=== PATIENT | female | born 1980 | race Caucasian/White ===

== ENCOUNTER 2020-05-24 04:39 | Inpatient (IN) | payer BC ==
[2020-05-24] MEDS ORDERED: Nalbuphine 10 MG/ML Syringe IVPUSH PRN (05:33)
[2020-05-24] MEDS ORDERED: Ampicillin 2 GM in Sodium Chloride 0.9% 100 ML IV ONE (05:33)
[2020-05-24] MEDS ORDERED: Sodium Chloride 0.9% 10 ML Syringe FLUSH PRN (05:33)
[2020-05-24] MEDS ORDERED: Ondansetron 4 MG/2 ML SDV IVPUSH PRN (05:33)
[2020-05-24] MEDS ORDERED: Oxytocin/Lactated Ringers 20 UNIT/1,000 ML BAG IV SCH (05:45)
[2020-05-24] MEDS: Lactated Ringers 1,000 ML IV SCH ×4 (06:15→22:14)
[2020-05-24] MEDS: Oxytocin/Lactated Ringers 10 UNIT/1,000 ML BAG IV SCH (06:20)
[2020-05-24] MEDS: Ampicillin 1 GM in Sodium Chloride 0.9% 100 ML IV SCH ×4 (10:02→21:23)
--- NOTE | 2020-05-24 11:00 | PCM.LDHP ---
<Marita Vilchis - Last Filed: 05/24/20 10:36> L&D History of Present Illness - General Date of Service: 05/24/20 Admit Problem/Dx: Patient Status Order with Admit Dx/Problem 05/24/20 04:57 Patient Status [ADT] Routine 05/24/20 05:33 Patient Status [ADT] Routine Admission Diagnosis/Problem Admission Diagnosis/Problem 05/24/20 10:36 Carolyn Vasquez is a 39 year old white female who presents to labor and delivery with rupture of membranes. She is 40 weeks and 1 day gestational age with an SAMMI of 05/23/2020. Source of Information: Patient History Limitations: Reports: No Limitations - History of Present Illness Introduction:: Carolyn Vasquez is a 39 year old white female who presents to labor and delivery with rupture of membranes. She is 40 weeks and 1 day gestational age with an SAMMI of 05/23/2020. Patient states that around 4:00 am this morning she felt a gush of fluids and came in to be checked. She is currently not experiencing any pain or contractions. She endorses that she has had a few contractions that radiated into her pelvic region. She is otherwise not bothered by labor. Carolyn did test positive for COVID-19. She states she did experience some sciatic pain early in . She had a lidocaine patch she applied that took the pain and irritation away. She recently has been experiencing some constipation. Carolyn states she modified her diet to control the constipation. She denies fever, cough, chills, sweats, sore throat, epistaxis, tinnitus, shortness of breath, chest pain, palpitations, dysuria, hematuria, anemia, paresthesias, anxiety or depression. [employer] OPERATOR history: Carolyn is a 39 year old . SAMMI of 05/23/2020 as determined by ultrasound on 11/05/2019. LMP was 08/25/2019. Patient had menarche at age 15. Early on her cycles were irregular but in the last 8-10 years have been regular with cycles being every 28 days. She would bleed for approximately 3-4 days. Menses were heavy. Patient was not on control at time of conception. She has no history of abnormal pap smears. She denies any STIs. course has been relatively unremarkable. She was seen early in at approximately 13 weeks gestation. She had regular visits. Weight gain was from 235 pounds to 278 pounds. Vital signs were stable throughout the course and her fundal height growth was appropriate. Patient had her TDAP on 03/01/2020. She plans to breast feed. Group B strep was positive. She desires epidural in labor. She is rubella immune. Blood type shows patient is O positive with a negative antibody screen. Hemoglobin was 12.8 g/dL and platelets were 258,000. RPR was nonreactive. Urine culture showed mixed frankie suggestive of contamination. HIV and Hepatitis B surface antigen were both negative. TSH on 10/29/2019 was 5.999 mlU/L. Second trimester labs revealed a hemoglobin of 10.5 g/dL and platelets of 288,000. Diabetic screening test was normal at 107. RPR on 03/01/2020 was nonreactive. Group B strep screen was positive. Assessment/Plan Administer 2 g IV Ampicillin with maintenance dose of 2 grams every hour until delivery for Group B strep. Administer Pitocin. Group B strep screen positive. Patient desires epidural Patient plans to breast feed Rubella titer shows immunity Plan: Anticipate normal spontaneous vaginal delivery unless otherwise indicated. Pitocin augmentation as needed Epidural as needed Routine labor care as needed COVID-19 precautions. Timing/Duration: Reports: gradual onset, intermittent Location, : Reports: Pelvic Quality: Reports: Pressure Pain Score: 1 - Related Data Allergies/Adverse Reactions: Allergies Allergy/AdvReac Type Severity Reaction Status Date / Time No Known Allergies Allergy Verified 05/24/20 04:59 Home Medications: Home Meds Ascorbic Acid [Vitamin C] 1,000 mg PO TID 05/24/20 [History] Aspirin [Adult Low Dose Aspirin EC] 81 mg PO DAILY 05/24/20 [History] Levothyroxine 25 mcg PO ACBREAKFAST 05/24/20 [History] Pnv No.95/Ferrous Fum/Folic AC [ Caplet] 2 each PO DAILY 05/24/20 [History] valACYclovir [Valtrex] 1,000 mg PO DAILY PRN MDD PRN symptom onset 05/24/20 [History] Past Medical History HEENT History: Reports: Allergic Rhinitis (Takes Zyrtec) Cardiovascular History: Denies: Hypertension Respiratory History: Denies: Asthma, Bronchitis, Recurrent Gastrointestinal History: Reports: GERD Genitourinary History: Reports: STD, Other (See Below) Other Genitourinary History: ORAL HSV [employer] OPERATOR History: Reports: Musculoskeletal History: Reports: None Neurological History: Reports: None Psychiatric History: Reports: None Endocrine/Metabolic History: Reports: Hyperthyroidism, Obesity/BMI 30+ Hematologic History: Reports: Anemia Immunologic History: Reports: None Oncologic (Cancer) History: Reports: None Dermatologic History: Reports: Other (See Below) - Infectious Disease History Infectious Disease History: Reports: None - Past Surgical History Head Surgeries/Procedures: Reports: None HEENT Surgical History: Reports: Oral Surgery, Other (See Below) Other HEENT Surgeries/Procedures: Wears glasses, wisdom teeth pulled Cardiovascular Surgical History: Reports: None Respiratory Surgical History: Reports: None GI Surgical History: Reports: None Female Surgical History: Reports: None Endocrine Surgical History: Reports: None Neurological Surgical History: Reports: None Musculoskeletal Surgical History: Reports: None Oncologic Surgical History: Reports: None Dermatological Surgical History: Reports: Skin Biopsy Social & Family History - Family History Family Medical History: Noncontributory Cardiac: Reports: Afib (Father), Hypertension (Father, Mother, Sister) - Tobacco Use Smoking Status *Q: Never Smoker Second Hand Smoke Exposure: No - Tobacco Core Measures Tobacco Use/Smoking Within Last 30 Days: No - Caffeine Use Caffeine Use: Reports: None, Coffee (1-2 cups per morning), Soda (Diet coke, Sprite) - Alcohol Use Alcohol Use History: No - Recreational Drug Use Recreational Drug Use: No - Living Situation & Occupation Living situation: Reports: Single, with Significant Other Occupation: Employed Social History Comment: Planning on moving in with significant other. Feels safe at home. Maintained healthy diet and exercise throughout course. States she traveled to [place] with mom and sisters right before COVID-19 hit the [place]. She was there for 5 days and returned early November. H&P Review of Systems - Review of Systems: Review Of Systems: See Below General: Denies: Fever, Chills, Weakness, Fatigue, Night Sweats HEENT: Reports: Sinus Congestion (Seasonal allergies). Denies: Headaches, Hearing Changes, Post Nasal Drip, Sore Throat Pulmonary: Denies: Shortness of Breath, Pleuritic Chest Pain, Cough, Sputum, Hemoptysis Cardiovascular: Reports: Edema. Denies: Chest Pain, Palpitations, Blood P ressure Problem Gastrointestinal: Reports: Constipation (Last few weeks of ; dietary modifications are helping. ). Denies: Black Stool, Bloody Stool, Diarrhea, Nausea, Vomiting Genitourinary: Denies: Dysuria, Frequency, Burning, Pain, Urgency Musculoskeletal: Denies: Arm Pain, Leg Pain, Joint Pain, Muscle Pain Skin: Denies: Cyanosis, Pruritis, Rash, Lesions, Lumps, Urticaria Psychiatric: Denies: Confusion, Depression, Anxiety, Agitation, Suicidal Ideation, Homicidal Ideation Neurological: Denies: Confusion, Dizziness, Headache, Numbness, Paresthesia, Tingling, Tremors Hematologic/Lymphatic: Denies: Anemia, Easy Bleeding Immunologic: Reports: Seasonal Allergy L&D Exam - Exam Exam: See Below - Vital Signs Vital Signs: Last Vital Signs Temp 98.0 F 05/24/20 04:57 Pulse 75 05/24/20 04:57 Resp 16 05/24/20 04:57 BP 125/87 05/24/20 04:57 Pulse Ox 95 05/24/20 04:57 Weight: 279 lb - OB Specific Contraction Intensity: Mild Movement: Active Heart Tones: Present - Exam General: Alert, Oriented HEENT: Hearing Intact Neck: Supple, Trachea Midline Lungs: Clear to Auscultation, Normal Respiratory Effort Cardiovascular: Regular Rate, Regular Rhythm, Normal S1, Normal S2 GI/Abdominal Exam: Soft, Non-Tender, Other (Gravid.) Extremities: Normal Inspection, Normal Range of Motion, Pedal Edema Skin: Warm, Dry, Intact Psychiatric: Alert, Normal Affect, Normal Mood - Patient Data Lab Results Last 24 hrs: Laboratory Results - last 24 hr 05/24/20 05/24/20 05/24/20 Range/Units 05:10 05:50 05:50 WBC 6.51 (3.98-10.04) K/mm3 RBC 4.27 (3.98-5.22) M/mm3 Hgb 11.7 (11.2-15.7) gm/dl Hct 36.0 (34.1-44.9) % MCV 84.3 (79.4-94.8) fl MCH 27.4 (25.6-32.2) pg MCHC 32.5 (32.2-35.5) g/dl RDW Std Deviation 45.5 (36.4-46.3) fL Plt Count 264 (182-369) K/mm3 MPV 11.9 (9.4-12.3) fl Neut % (Auto) 52.8 (34.0-71.1) % Lymph % (Auto) 29.8 (19.3-51.7) % Ward % (Auto) 11.5 (4.7-12.5) % Eos % (Auto) 5.2 (0.7-5.8) Baso % (Auto) 0.5 (0.1-1.2) % Neut # (Auto) 3.44 (1.56-6.13) K/mm3 Lymph # (Auto) 1.94 (1.18-3.74) K/mm3 Ward # (Auto) 0.75 H (0.24-0.36) K/mm3 Eos # (Auto) 0.34 (0.04-0.36) K/mm3 Baso # (Auto) 0.03 (0.01-0.08) K/mm3 Membrane Rupture Positive H COVID-19 (DANIELE) (NEGATIVE) Blood Type O POSITIVE Gel Antibody Screen Negative 05/24/20 Range/Units 06:20 WBC (3.98-10.04) K/mm3 RBC (3.98-5.22) M/mm3 Hgb (11.2-15.7) gm/dl Hct (34.1-44.9) % MCV (79.4-94.8) fl MCH (25.6-32.2) pg MCHC (32.2-35.5) g/dl RDW Std Deviation (36.4-46.3) fL Plt Count (182-369) K/mm3 MPV (9.4-12.3) fl Neut % (Auto) (34.0-71.1) % Lymph % (Auto) (19.3-51.7) % Ward % (Auto) (4.7-12.5) % Eos % (Auto) (0.7-5.8) Baso % (Auto) (0.1-1.2) % Neut # (Auto) (1.56-6.13) K/mm3 Lymph # (Auto) (1.18-3.74) K/mm3 Ward # (Auto) (0.24-0.36) K/mm3 Eos # (Auto) (0.04-0.36) K/mm3 Baso # (Auto) (0.01-0.08) K/mm3 Membrane Rupture COVID-19 (DANIELE) Positive H (NEGATIVE) Blood Type Gel Antibody Screen Result Diagrams: 05/24/20 05:50 Problem List Initiated/Reviewed/Updated: Yes Orders Last 24hrs: Active Orders 24 hr Category Date Time Status Patient Status [ADT] Routine ADT 05/24/20 05:33 Active Activity as Tolerated [RC] PFP Care 05/24/20 05:33 Active Communication Order [RC] ASDIRECTED Care 05/24/20 05:33 Active Heart Tones [RC] ASDIRECTED Care 05/24/20 05:34 Active Non Stress Test [RC] PER UNIT ROUTINE Care 05/24/20 04:57 Active Notify Provider [RC] PFP Care 05/24/20 05:33 Active Notify Provider [RC] PRN Care 05/24/20 05:33 Active Peripheral IV Care [RC] . DIRECTED Care 05/24/20 05:34 Active Vital Signs [RC] PER UNIT ROUTINE Care 05/24/20 04:57 Active Regular Diet [DIET] Diet 05/24/20 Breakfast Active CORONAVIRUS COVID-19 PCR PHL Stat Lab 05/24/20 06:50 Received RAPID PLASMA REAGIN,RPR [CHEM] Routine Lab 05/24/20 05:50 Received Ampicillin 1 gm Med 05/24/20 09:30 Active Sodium Chloride 0.9% [Normal Saline] 100 ml IV Q4H Lactated Ringers [Ringers, Lactated] 1,000 ml Med 05/24/20 05:45 Active IV ASDIRECTED Nalbuphine [Nubain] Med 05/24/20 05:33 Active 10 mg IVPUSH Q2H PRN Ondansetron [Zofran] Med 05/24/20 05:33 Active 4 mg IVPUSH Q4H PRN Oxytocin/Lactated Ringers [Pitocin in LR 10 Units/1,000 Med 05/24/20 05:45 Active ML] 10 unit in 1,000 ml IV TITRATE Oxytocin/Lactated Ringers [Pitocin in LR 20 Units/1,000 Med 05/24/20 05:45 Active ML] 20 unit in 1,000 ml IV .CONTINUOUS Sodium Chloride 0.9% [Saline Flush] Med 05/24/20 05:33 Active 10 ml FLUSH ASDIRECTED PRN Electronic Heart Tones Ext w TOCO [WOMSER] Oth 05/24/20 05:33 Ordered Routine Electronic Heart Tones Internal [WOMSER] Per Unit Oth 05/24/20 05:33 Ord ered Routine Isolation [COMM] Routine Oth 05/24/20 07:10 Ordered Peripheral IV Insertion Adult [OM.PC] Routine Oth 05/24/20 05:33 Ordered Resuscitation Status Routine Resus Stat 05/24/20 04:57 Ordered Medication Orders Lactated Ringer's (Ringers, Lactated) 1,000 mls @ 100 mls/hr IV ASDIRECTED CHATA Last Admin: 05/24/20 06:15 Dose: 100 mls/hr Documented by: FORD Ampicillin Sodium 1 gm/ Sodium (Chloride) 100 mls @ 200 mls/hr IV Q4H CHATA Last Admin: 05/24/20 10:02 Dose: 200 mls/hr Documented by: CASIE Oxytocin/Lactated Ringer's (Pitocin In Lr 20 Units/1,000 Ml) 20 unit in 1,000 mls @ 500 mls/hr IV .CONTINUOUS CHATA Oxytocin/Lactated Ringer's (Pitocin In Lr 10 Units/1,000 Ml) 10 unit in 1,000 mls @ 12 mls/hr IV TITRATE CHATA; Protocol Last Titration: 05/24/20 10:04 Dose: 10 munits/min, 60 mls/hr Documented by: [id number] Titration: 05/24/20 09:30 Dose: 8 munits/min, 48 mls/hr Documented by: [email or web address] Titration: 05/24/20 08:45 Dose: 6 munits/min, 36 mls/hr Documented by: [id number] Titration: 05/24/20 08:12 Dose: 4 munits/min, 24 mls/hr Documented by: [id number] Admin: 05/24/20 06:20 Dose: 2 munits/min, 12 mls/hr Documented by: FORD Nalbuphine HCl (Nubain) 10 mg IVPUSH Q2H PRN PRN Reason: Pain Ondansetron HCl (Zofran) 4 mg IVPUSH Q4H PRN PRN Reason: Nausea/Vomiting Sodium Chloride (Saline Flush) 10 ml FLUSH ASDIRECTED PRN PRN Reason: Keep Vein Open <Jim Dean - Last Filed: 05/24/20 13:34> L&D History of Present Illness - General Admit Problem/Dx: Patient Status Order with Admit Dx/Problem 05/24/20 04:57 Patient Status [ADT] Routine 05/24/20 05:33 Patient Status [ADT] Routine Admission Diagnosis/Problem Admission Diagnosis/Problem L&D Exam - Vital Signs Vital Signs: Last Vital Signs Temp 98.0 F 05/24/20 04:57 Pulse 75 05/24/20 04:57 Resp 16 05/24/20 04:57 BP 125/87 05/24/20 04:57 Pulse Ox 95 05/24/20 04:57 - Patient Data Lab Results Last 24 hrs: Laboratory Results - last 24 hr 05/24/20 05/24/20 05/24/20 Range/Units 05:10 05:50 05:50 WBC 6.51 (3.98-10.04) K/mm3 RBC 4.27 (3.98-5.22) M/mm3 Hgb 11.7 (11.2-15.7) gm/dl Hct 36.0 (34.1-44.9) % MCV 84.3 (79.4-94.8) fl MCH 27.4 (25.6-32.2) pg MCHC 32.5 (32.2-35.5) g/dl RDW Std Deviation 45.5 (36.4-46.3) fL Plt Count 264 (182-369) K/mm3 MPV 11.9 (9.4-12.3) fl Neut % (Auto) 52.8 (34.0-71.1) % Lymph % (Auto) 29.8 (19.3-51.7) % Ward % (Auto) 11.5 (4.7-12.5) % Eos % (Auto) 5.2 (0.7-5.8) Baso % (Auto) 0.5 (0.1-1.2) % Neut # (Auto) 3.44 (1.56-6.13) K/mm3 Lymph # (Auto) 1.94 (1.18-3.74) K/mm3 Ward # (Auto) 0.75 H (0.24-0.36) K/mm3 Eos # (Auto) 0.34 (0.04-0.36) K/mm3 Baso # (Auto) 0.03 (0.01-0.08) K/mm3 Membrane Rupture Positive H COVID-19 (DANIELE) (NEGATIVE) Blood Type O POSITIVE Gel Antibody Screen Negative 05/24/20 Range/Units 06:20 WBC (3.98-10.04) K/mm3 RBC (3.98-5.22) M/mm3 Hgb (11.2-15.7) gm/dl Hct (34.1-44.9) % MCV (79.4-94.8) fl MCH (25.6-32.2) pg MCHC (32.2-35.5) g/dl RDW Std Deviation (36.4-46.3) fL Plt Count (182-369) K/mm3 MPV (9.4-12.3) fl Neut % (Auto) (34.0-71.1) % Lymph % (Auto) (19.3-51.7) % Ward % (Auto) (4.7-12.5) % Eos % (Auto) (0.7-5.8) Baso % (Auto) (0.1-1.2) % Neut # (Auto) (1.56-6.13) K/mm3 Lymph # (Auto) (1.18-3.74) K/mm3 Ward # (Auto) (0.24-0.36) K/mm3 Eos # (Auto) (0.04-0.36) K/mm3 Baso # (Auto) (0.01-0.08) K/mm3 Membrane Rupture COVID-19 (DANIELE) Positive H (NEGATIVE) Blood Type Gel Antibody Screen Result Diagrams: 05/24/20 05:50 - Problem List (1) COVID-19 affecting , antepartum SNOMED Code(s): 417567690 ICD Code: O98.519 - OTHER VIRAL DISEASES COMPLICATING , UNSP TRIMESTER; U07.1 - COVID-19 Status: Acute Current Visit: Yes (2) GBS carrier SNOMED Code(s): 5615901806305 ICD Code: Z22.330 - CARRIER OF GROUP B STREPTOCOCCUS Status: Acute Current Visit: Yes (3) 40 weeks gestation of SNOMED Code(s): 96818850 ICD Code: Z3A.40 - 40 WEEKS GESTATION OF Status: Acute Current Visit: Yes Problem List Initiated/Reviewed/Updated: No Orders Last 24hrs: Active Orders 24 hr Category Date Time Status Patient Status [ADT] Routine ADT 05/24/20 05:33 Active Activity as Tolerated [RC] PFP Care 05/24/20 05:33 Active Communication Order [RC] ASDIRECTED Care 05/24/20 05:33 Active Heart Tones [RC] ASDIRECTED Care 05/24/20 05:34 Active Non Stress Test [RC] PER UNIT ROUTINE Care 05/24/20 04:57 Active Notify Provider [RC] PFP Care 05/24/20 05:33 Active Notify Provider [RC] PRN Care 05/24/20 05:33 Active Peripheral IV Care [RC] . DIRECTED Care 05/24/20 05:34 Active Vital Signs [RC] PER UNIT ROUTINE Care 05/24/20 04:57 Active Regular Diet [DIET] Diet 05/24/20 Breakfast Active CORONAVIRUS COVID-19 PCR PHL Stat Lab 05/24/20 06:50 Received RAPID PLASMA REAGIN,RPR [CHEM] Routine Lab 05/24/20 05:50 Received Ampicillin 1 gm Med 05/24/20 09:30 Active Sodium Chloride 0.9% [Normal Saline] 100 ml IV Q4H Lactated Ringers [Ringers, Lactated] 1,000 ml Med 05/24/20 05:45 Active IV ASDIRECTED Nalbuphine [Nubain] Med 05/24/20 05:33 Active 10 mg IVPUSH Q2H PRN Ondansetron [Zofran] Med 05/24/20 05:33 Active 4 mg IVPUSH Q4H PRN Oxytocin/Lactated Ringers [Pitocin in LR 10 Units/1,000 Med 05/24/20 05:45 Active ML] 10 unit in 1,000 ml IV TITRATE Oxytocin/Lactated Ringers [Pitocin in LR 20 Units/1,000 Med 05/24/20 05:45 Active ML] 20 unit in 1,000 ml IV .CONTINUOUS Sodium Chloride 0.9% [Saline Flush] Med 05/24/20 05:33 Active 10 ml FLUSH ASDIRECTED PRN Electronic Heart Tones Ext w TOCO [WOMSER] Oth 05/24/20 05:33 Ordered Routine Electronic Heart Tones Internal [WOMSER] Per Unit Oth 05/24/20 05:33 Ordered Routine Isolation [COMM] Routine Oth 05/24/20 07:10 Ordered Peripheral IV Insertion Adult [OM.PC] Routine Oth 05/24/20 05:33 Ordered Resuscitation Status Routine Resus Stat 05/24/20 04:57 Ordered Medication Orders Lactated Ringer's (Ringers, Lactated) 1,000 mls @ 100 mls/hr IV ASDIRECTED CHATA Last Admin: 05/24/20 06:15 Dose: 100 mls/hr Documented by: FORD Ampicillin Sodium 1 gm/ Sodium (Chloride) 100 mls @ 200 mls/hr IV Q4H CHATA Last Admin: 05/24/20 13:29 Dose: 200 mls/hr Documented by: [email or web address] Infusion: 05/24/20 10:32 Dose: 200 mls/hr Documented by: [id number] Admin: 05/24/20 10:02 Dose: 200 mls/hr Documented by: CASIE Oxytocin/Lactated Ringer's (Pitocin In Lr 20 Units/1,000 Ml) 20 unit in 1,000 mls @ 500 mls/hr IV .CONTINUOUS CHATA Oxytocin/Lactated Ringer's (Pitocin In Lr 10 Units/1,000 Ml) 10 unit in 1,000 mls @ 12 mls/hr IV TITRATE CHATA; Protocol Last Titration: 05/24/20 12:45 Dose: 16 munits/min, 96 mls/hr Documented by: [id number] Titration: 05/24/20 11:45 Dose: 14 munits/min, 84 mls/hr Documented by: [id number] Titration: 05/24/20 10:30 Dose: 12 munits/min, 72 mls/hr Documented by: [id number] Titration: 05/24/20 10:04 Dose: 10 munits/min, 60 mls/hr Documented by: [id number] Titration: 05/24/20 09:30 Dose: 8 munits/min, 48 mls/hr Documented by: [id number] Titration: 05/24/20 08:45 Dose: 6 munits/min, 36 mls/hr Documented by: [id number] Titration: 05/24/20 08:12 Dose: 4 munits/min, 24 mls/hr Documented by: [id number] Admin: 05/24/20 06:20 Dose: 2 munits/min, 12 mls/hr Documented by: FORD Nalbuphine HCl (Nubain) 10 mg IVPUSH Q2H PRN PRN Reason: Pain Ondansetron HCl (Zofran) 4 mg IVPUSH Q4H PRN PRN Reason: Nausea/Vomiting Sodium Chloride (Saline Flush) 10 ml FLUSH ASDIRECTED PRN PRN Reason: Keep Vein Open Assessment/Plan Comment:: Patient seen and examined by me and discussed with student
--- NOTE | 2020-05-24 13:41 | PCM.SN.2 ---
- Free Text/Narrative Note: Cervix is 1 cm dilated 40% effaced soft posterior continues to leak fluid vertex presentation -3 station
--- NOTE | 2020-05-24 17:16 | PCM.SN.2 ---
- Free Text/Narrative Note: At 1710 hrs. cervix is 1 fingertip dilated, 40% effaced, soft, posterior, vertex presentation -3 station.
[2020-05-24] MEDS ORDERED: ePHEDrine 50 MG/ML SDV IVPUSH PRN (20:01)
[2020-05-24] MEDS ORDERED: fentaNYL 100 MCG/2 ML SDV EPIDUR PRN (20:01)
[2020-05-24] MEDS ORDERED: diphenhydrAMINE 50 MG/ML SDV IVPUSH PRN (20:01)
[2020-05-24] MEDS: Bupivacaine/fentaNYL/NS 100 ML Bag EPIDUR PRN (20:19)
--- NOTE | 2020-05-24 20:54 | PCM.PREANE ---
Preanesthetic Assessment - Procedure Proposed Procedure: epidural - Anesthesia/Transfusion/Family Hx Anesthesia History: No Prior Anesthesia Family History of Anesthesia Reaction: No Transfusion History: No Prior Transfusion(s) - Review of Systems General: Fatigue Pulmonary: No Symptoms Cardiovascular: No Symptoms Gastrointestinal: Abdominal Pain (labor) Neurological: No Symptoms Other: Reports: None - Physical Assessment Vital Signs: Last Vital Signs Temp 36.7 C 05/24/20 04:57 Pulse 75 05/24/20 04:57 Resp 16 05/24/20 04:57 BP 125/87 05/24/20 04:57 Pulse Ox 95 05/24/20 04:57 Height: 1.68 m Weight: 126.552 kg ASA Class: 2 Mental Status: Alert & Oriented x3 Airway Class: Mallampati = 2 Dentition: Reports: Normal Dentition Thyro-Mental Finger Breadths: 3 Mouth Opening Finger Breadths: 3 ROM/Head Extension: Full Lungs: Clear to Auscultation, Normal Respiratory Effort Cardiovascular: Regular Rate, Regular Rhythm - Lab Values: Laboratory Last Values WBC 6.51 K/mm3 (3.98-10.04) 05/24/20 05:50 RBC 4.27 M/mm3 (3.98-5.22) 05/24/20 05:50 Hgb 11.7 gm/dl (11.2-15.7) 05/24/20 05:50 Hct 36.0 % (34.1-44.9) 05/24/20 05:50 MCV 84.3 fl (79.4-94.8) 05/24/20 05:50 MCH 27.4 pg (25.6-32.2) 05/24/20 05:50 MCHC 32.5 g/dl (32.2-35.5) 05/24/20 05:50 RDW Std Deviation 45.5 fL (36.4-46.3) 05/24/20 05:50 Plt Count 264 K/mm3 (182-369) 05/24/20 05:50 MPV 11.9 fl (9.4-12.3) 05/24/20 05:50 Neut % (Auto) 52.8 % (34.0-71.1) 05/24/20 05:50 Lymph % (Auto) 29.8 % (19.3-51.7) 05/24/20 05:50 [place] % (Auto) 11.5 % (4.7-12.5) 05/24/20 05:50 Eos % (Auto) 5.2 (0.7-5.8) 05/24/20 05:50 Baso % (Auto) 0.5 % (0.1-1.2) 05/24/20 05:50 Neut # (Auto) 3.44 K/mm3 (1.56-6.13) 05/24/20 05:50 Lymph # (Auto) 1.94 K/mm3 (1.18-3.74) 05/24/20 05:50 [place] # (Auto) 0.75 K/mm3 (0.24-0.36) H 05/24/20 05:50 Eos # (Auto) 0.34 K/mm3 (0.04-0.36) 05/24/20 05:50 Baso # (Auto) 0.03 K/mm3 (0.01-0.08) 05/24/20 05:50 Membrane Rupture Positive H 05/24/20 05:10 RPR Non-reactive (NONREACTIVE) 05/24/20 05:50 COVID-19 (DANIELE) Positive (NEGATIVE) H 05/24/20 06:20 Blood Type O POSITIVE 05/24/20 05:50 Gel Antibody Screen Negative 05/24/20 05:50 - Allergies Allergies/Adverse Reactions: Allergies Allergy/AdvReac Type Severity Reaction Status Date / Time No Known Allergies Allergy Verified 05/24/20 04:59 - Anesthesia Plan Pre-Op Medication Ordered: None - Acknowledgements Anesthesia Type Planned: Epidural Pt an Appropriate Candidate for the Planned Anesthesia: Yes Alternatives and Risks of Anesthesia Discussed w Pt/Guardian: Yes Pt/Guardian Understands and Agrees with Anesthesia Plan: Yes PreAnesthesia Questionnaire HEENT History: Reports: Allergic Rhinitis (Takes Zyrtec) Cardiovascular History: Denies: Hypertension Respiratory History: Denies: Asthma, Bronchitis, Recurrent Gastrointestinal History: Reports: GERD Genitourinary History: Reports: STD, Other (See Below) Other Genitourinary History: ORAL HSV FORESTER AIDE History: Reports: Musculoskeletal History: Reports: None Neurological History: Reports: None Psychiatric History: Reports: None Endocrine/Metabolic History: Reports: Hyperthyroidism, Obesity/BMI 30+ Hematologic History: Reports: Anemia Immunologic History: Reports: None Oncologic (Cancer) History: Reports: None Dermatologic History: Reports: Other (See Below) - Infectious Disease History Infectious Disease History: Reports: None - Past Surgical History Head Surgeries/Procedures: Reports: None HEENT Surgical History: Reports: Oral Surgery, Other (See Below) Other HEENT Surgeries/Procedures: Wears glasses, wisdom teeth pulled Cardiovascular Surgical History: Reports: None Respiratory Surgical History: Reports: None GI Surgical History: Reports: None Female Surgical History: Reports: None Endocrine Surgical History: Reports: None Neurological Surgical History: Reports: None Musculoskeletal Surgical History: Reports: None Oncologic Surgical History: Reports: None Dermatological Surgical History: Reports: Skin Biopsy - SUBSTANCE USE Smoking Status *Q: Never Smoker Second Hand Smoke Exposure: No Recreational Drug Use History: No - HOME MEDS Home Medications: Home Meds Ascorbic Acid [Vitamin C] 1,000 mg PO TID 05/24/20 [History] Aspirin [Adult Low Dose Aspirin EC] 81 mg PO DAILY 05/24/20 [History] Levothyroxine 25 mcg PO ACBREAKFAST 05/24/20 [History] Pnv No.95/Ferrous Fum/Folic AC [ Caplet] 2 each PO DAILY 05/24/20 [History] valACYclovir [Valtrex] 1,000 mg PO DAILY PRN MDD PRN symptom onset 05/24/20 [History] - CURRENT (IN HOUSE) MEDS Current Meds: Current Medications Diphenhydramine HCl (Benadryl) 25 mg IVPUSH Q6H PRN PRN Reason: pruritis Ephedrine Sulfate (Ephedrine Sulfate) 5 mg IVPUSH ASDIRECTED PRN PRN Reason: Hypotension Fentanyl (Sublimaze) 100 mcg EPIDUR Q3H PRN PRN Reason: Pain Last Admin: 05/24/20 20:20 Dose: 100 mcg Documented by: Fentanyl/Bupivacaine HCl (Fentanyl/Bupivacaine/Ns 2 Mcg-0.125% 100 Ml) 100 ml EPIDUR ASDIRECTED PRN PRN Reason: Pain Last Admin: 05/24/20 20:19 Dose: 100 ml Documented by: Lactated Ringer's (Ringers, Lactated) 1,000 mls @ 100 mls/hr IV ASDIRECTED CHATA Last Admin: 05/24/20 20:19 Dose: 100 mls/hr Documented by: Ampicillin Sodium 1 gm/ Sodium (Chloride) 100 mls @ 200 mls/hr IV Q4H CHATA Last Admin: 05/24/20 17:16 Dose: 200 mls/hr Documented by: Oxytocin/Lactated Ringer's (Pitocin In Lr 20 Units/1,000 Ml) 20 unit in 1,000 mls @ 500 mls/hr IV .CONTINUOUS CHATA Last Infusion: 05/24/20 20:23 Dose: 60 mls/hr Documented by: Oxytocin/Lactated Ringer's (Pitocin In Lr 10 Units/1,000 Ml) 10 unit in 1,000 mls @ 12 mls/hr IV TITRATE CHATA; Protocol Last Titration: 05/24/20 17:15 Dose: 24 munits/min, 144 mls/hr Documented by: Nalbuphine HCl (Nubain) 10 mg IVPUSH Q2H PRN PRN Reason: Pain Ondansetron HCl (Zofran) 4 mg IVPUSH Q4H PRN PRN Reason: Nausea/Vomiting Sodium Chloride (Saline Flush) 10 ml FLUSH ASDIRECTED PRN PRN Reason: Keep Vein Open Discontinued Medications Ampicillin Sodium 2 gm/ Sodium (Chloride) 100 mls @ 200 mls/hr IV ONETIME ONE Stop: 05/24/20 06:02 Last Admin: 05/24/20 06:15 Dose: 200 mls/hr Documented by:
[2020-05-25] MEDS: Ampicillin 1 GM in Sodium Chloride 0.9% 100 ML IV SCH ×4 (01:59→22:31)
[2020-05-25] MEDS: Bupivacaine/fentaNYL/NS 100 ML Bag EPIDUR PRN ×2 (04:15→09:51)
[2020-05-25] MEDS: Lactated Ringers 1,000 ML IV SCH ×3 (04:42→07:35)
[2020-05-25] MEDS: Oxytocin/Lactated Ringers 10 UNIT/1,000 ML BAG IV SCH (10:32)
[2020-05-25] MEDS ORDERED: ceFAZolin 2 GM in Premix Bag 1 BAG IV ONE (12:22)
[2020-05-25] MEDS ORDERED: Metoclopramide 10 MG/2 ML SDV IVPUSH ONE (12:22)
[2020-05-25] MEDS ORDERED: ceFAZolin 1 GM in Premix Bag 1 BAG IV ONE (12:22)
[2020-05-25] MEDS ORDERED: Citric Acid/Sodium Citrate Solution 30 ML Cup PO ONE (12:22)
--- NOTE | 2020-05-25 12:29 | PCM.SN.2 ---
- Free Text/Narrative Note: Patient has been pushing for 2-1/2 hours without further descent from 0 station. Epidural has been off for over an hour with no change in descent of the presenting part except for It formation. We will proceed with section. And has been in agreement with same.
[2020-05-25] MEDS ORDERED: Oxytocin/Lactated Ringers 20 UNIT/1,000 ML BAG IV SCH (12:30)
[2020-05-25] MEDS ORDERED: Azithromycin 500 MG in Sodium Chloride 0.9% 250 ML IV ONE (12:30)
[2020-05-25] MEDS ORDERED: Lactated Ringers 1,000 ML ONE ×2 (12:38→13:21)
[2020-05-25] MEDS ORDERED: fentaNYL 100 MCG/2 ML SDV ONE (12:40)
[2020-05-25] MEDS ORDERED: Morphine PF 1 MG/ML Amp ONE (12:41)
[2020-05-25] MEDS: Bupivacaine 0.5% 30 ML SDV ONE (13:07)
[2020-05-25] MEDS ORDERED: Ketorolac 30 MG/ML SDV ONE (13:13)
[2020-05-25] MEDS ORDERED: Ondansetron 4 MG/2 ML SDV ONE (13:18)
[2020-05-25] MEDS ORDERED: fentaNYL 100 MCG/2 ML SDV IVPUSH PRN (13:27)
[2020-05-25] MEDS ORDERED: Ondansetron 4 MG/2 ML SDV IVPUSH PRN (13:27)
[2020-05-25] MEDS ORDERED: diphenhydrAMINE 50 MG/ML SDV IVPUSH PRN ×2 (13:27→15:54)
--- NOTE | 2020-05-25 13:54 | PCM.POSTAN ---
POST ANESTHESIA ASSESSMENT - MENTAL STATUS Mental Status: Alert, Oriented - VITAL SIGNS Vital Signs: Last Vital Signs Temp 37.9 C 05/25/20 12:16 Pulse 75 05/24/20 04:57 Resp 18 05/25/20 12:16 BP 166/78 H 05/25/20 12:16 Pulse Ox 98 05/25/20 12:16 - RESPIRATORY Respiratory Status: Respiratory Rate WNL, Airway Patent, O2 Saturation Stable - CARDIOVASCULAR CV Status: Pulse Rate WNL, Blood Pressure Stable - GASTROINTESTINAL GI Status: No Symptoms - PAIN Pain Score: 0 - POST OP HYDRATION Hydration Status: Adequate & Stable
--- NOTE | 2020-05-25 14:07 | PCM48HPAN ---
Post Anesthesia Note - EVALUATION WITHIN 48HRS OF ANESTHETIC Vital Signs in Normal Range: Yes Patient Participated in Evaluation: Yes Respiratory Function Stable: Yes Airway Patent: Yes Cardiovascular Function Stable: Yes Hydration Status Stable: Yes Pain Control Satisfactory: Yes Nausea and Vomiting Control Satisfactory: Yes Mental Status Recovered: Yes Vital Signs: Last Vital Signs Temp 36.4 C 05/25/20 14:01 Pulse 78 05/25/20 14:01 Resp 15 05/25/20 14:01 BP 118/65 05/25/20 14:01 Pulse Ox 96 05/25/20 14:01
--- NOTE | 2020-05-25 14:12 | PCM.OPNOTE ---
- General Post-Op/Procedure Note Date of Surgery/Procedure: 05/25/20 Operative Procedure(s): Primary low segment transverse Pre Op Diagnosis: Failure to progress second stage of labor, persistent occiput posterior suspected. With COVID 19+. Post-Op Diagnosis: Same Anesthesia Technique: Epidural Primary Surgeon: Jim Dean Secondary Surgeon: Kendrick Godinez Anesthesia Provider: Roberta Combs Human Resources Office Assistant: Marita Vilchis (PAS) Reason Human Resources Office Assistant Was Necessary: Assist in surgery, retraction, decrease comorbidity and mortality Role of Human Resources Office Assistant: Assist in surgery, retraction, decrease comorbidity and mortality Fluid Replacement, Intraop: 1,800 Output, Urine Amount: 80 EBL in mLs: 600 Drain/Tube Comments:: Martinez Complications: None Condition: Good Free Text/Narrative:: Intake & Output 05/24/20 05/25/20 05/25/20 22:59 06:59 14:59 Intake Total 2780 2200 1100 Balance 2780 2200 1100 Patient was transferred to the operating room and surgery operating room #1 placed under epidural anesthesia in the supine position with a wedge of the right hip and right flank. PPE precautions for COVID were taken as patient was COVID-19 positive vaginal abdominal prep performed a azithromycin 500 mg and Ancef 3 g given intravenously prior to surgery Martinez catheter had been placed to gravity drainage. Prepared and draped in a sterile fashion. Timeout performed confirming name date of and procedures primary section. Adequate level of anesthesia was confirmed the was in the operating room and utilizing Trax additional retraction the area of the incision prior to draping the patient in a sterile fashion. Confirmed adequate level anesthesia injecting 20 mL of 0.5% Marcaine in the area of the planned incision Pfannenstiel incision was made and carried sharp section to and through the anterior fascia peritoneal cavity was entered without difficulty. Bladder flap created pushed caudad. A low segment transverse was performed delivering a female liveborn at 1309 hrs. Apgars 8/9 weight 3810 g 8 pounds 6 ounces persistent occiput posterior adding to the difficulty of attempted vaginal delivery. trace and present at delivery cared for the . Cord blood was collected from three-vessel cord and placenta was removed manually, inspection removed additional remnants of membranes. Sponge and needle pack instrument count correct x1 and the uterus was closed in 2 layers running locking suture of 0 Monocryl for the first layer in a horizontal imbricating suture modified Lembert type for the second layer. Both tubes and ovaries appeared normal clots were cleaned from the gutters and cul-de-sac the uterus placed into the abdominal cavity and inspected and no bleeding from the operative site. Sponge needle pack instrument count correct x2 and the abdominal incision was closed with #1 PDS for the anterior fascia the skin was closed subcuticular 3-0 Monocryl Dermabond Preneo applied. Patient was recovered in the operating room to her COVID 19+ complication. No blood transfusions were required none are anticipated unless her condition should change
[2020-05-25] MEDS ORDERED: Docusate Sodium 100 MG Cap PO PRN (15:54)
[2020-05-25] MEDS ORDERED: valACYclovir 1,000 MG Tab PO PRN (15:54)
[2020-05-25] MEDS ORDERED: Acetaminophen/oxyCODONE 325-5 MG Tab PO PRN (15:54)
[2020-05-25] MEDS ORDERED: Dextrose 5%-Lactated Ringers 1,000 ML IV SCH (15:54)
[2020-05-25] MEDS ORDERED: Naloxone 0.4 MG/ML SDV IVPUSH PRN (15:54)
[2020-05-25] MEDS ORDERED: Sodium Chloride 0.9% 10 ML Syringe FLUSH PRN (15:54)
[2020-05-25] MEDS ORDERED: ePHEDrine 50 MG/ML SDV IVPUSH PRN (15:54)
[2020-05-25] MEDS ORDERED: Ondansetron 4 MG/2 ML SDV IV PRN (15:54)
[2020-05-25] MEDS ORDERED: Ibuprofen 600 MG Tab PO PRN (17:00)
[2020-05-25] MEDS: Simethicone 80 MG Tab.Chew PO SCH ×2 (17:45→21:33)
[2020-05-25] MEDS: Ketorolac 30 MG/ML SDV IVPUSH SCH (20:10)
[2020-05-26] MEDS ORDERED: Bupivacaine 0.25% 10 ML SDV ONE
[2020-05-26] MEDS: Ketorolac 30 MG/ML SDV IVPUSH SCH ×2 (01:34→07:59)
[2020-05-26] MEDS: Levothyroxine 25 MCG Tab PO SCH (06:20)
[2020-05-26] MEDS: Simethicone 80 MG Tab.Chew PO SCH ×4 (08:00→20:13)
[2020-05-26] MEDS: Bupivacaine 0.5% 30 ML SDV ONE (08:59)
[2020-05-26] MEDS: Acetaminophen 325 MG Tab PO PRN ×2 (11:57→20:24)
--- NOTE | 2020-05-26 11:59 | PCM.SN.2 ---
- Free Text/Narrative Note: day 1/postop day 1/ Patient is afebrile. Chest clear no abnormal breath sounds. Cardiovascular examination regular sinus rhythm. Abdomen is soft. Incision is healing well. Uterus involuted to approximately U- 1 number no heavy vaginal bleeding. No leg tenderness or thigh tenderness. Probably home tomorrow.
[2020-05-26] MEDS ORDERED: Ibuprofen 600 MG Tab PO PRN (13:00)
[2020-05-26] MEDS: Acetaminophen/oxyCODONE 325-5 MG Tab PO PRN (22:12)
--- NOTE | 2020-05-27 08:34 | PCM.DCSUM1 ---
Discharge Summary - Hospital Course Free Text/Narrative:: [place] [facility] Post-Op/Procedure Note Patient Name: ZAIDA DILLON Date of : 80 Patient Status: Inpatient Attending Provider: Jim Dean Date: 05/25/20 14:07 Initialization Date: 05/25/20 14:07 - General Post-Op/Procedure Note Date of Surgery/Procedure: 05/25/20 Operative Procedure(s): Primary low segment transverse Pre Op Diagnosis: Failure to progress second stage of labor, persistent occiput posterior suspected. With COVID 19+. Post-Op Diagnosis: Same Anesthesia Technique: Epidural Primary Surgeon: Jim Dean Secondary Surgeon: Kendrick Godinez Anesthesia Provider: Roberta Combs Golf Course Keeper: Marita Vilchis (PAS) Reason Golf Course Keeper Was Necessary: Assist in surgery, retraction, decrease comorbidity and mortality Role of Golf Course Keeper: Assist in surgery, retraction, decrease comorbidity and mortality Fluid Replacement, Intraop: 1,800 Output, Urine Amount: 80 EBL in mLs: 600 Drain/Tube Comments:: Martinez Complications: None Condition: Good Free Text/Narrative:: Intake & Output 05/24/20 05/25/20 05/25/20 22:59 06:59 14:59 Intake Total 2780 2200 1100 Balance 2780 2200 1100 Patient was transferred to the operating room and surgery operating room #1 placed under epidural anesthesia in the supine position with a wedge of the right hip and right flank. PPE precautions for COVID were taken as patient was COVID-19 positive vaginal abdominal prep performed a azithromycin 500 mg and Ancef 3 g given intravenously prior to surgery Martinez catheter had been placed to gravity drainage. Prepared and draped in a sterile fashion. Timeout performed confirming name date of and procedures primary section. Adequate level of anesthesia was confirmed the was in the operating room and utilizing Trax additional retraction the area of the incision prior to draping the patient in a sterile fashion. Confirmed adequate level anesthesia injecting 20 mL of 0.5% Marcaine in the area of the planned incision Pfannenstiel incision was made and carried sharp section to and through the anterior fascia peritoneal cavity was entered without difficulty. Bladder flap created pushed caudad. A low segment transverse was performed delivering a female liveborn at 1309 hrs. Apgars 8/9 weight 3810 g 8 pounds 6 ounces persistent occiput posterior adding to the difficulty of attempted vaginal delivery. Dr.Oksa dailey and present at delivery cared for the . Cord blood was collected from three-vessel cord and placenta was removed manually, inspection removed additional remnants of membranes. Sponge and needle pack instrument count correct x1 and the uterus was closed in 2 layers running locking suture of 0 Monocryl for the first layer in a horizontal imbricating suture modified Lembert type for the second layer. Both tubes and ovaries appeared normal clots were cleaned from the gutters and cul-de-sac the uterus placed into the abdominal cavity and inspected and no bleeding from the operative site. Sponge needle pack instrument count correct x2 and the abdominal incision was closed with #1 PDS for the anterior fascia the skin was closed subcuticular 3-0 Monocryl Dermabond Preneo applied. Patient was recovered in the operating room to her COVID 19+ complication. No blood transfusions were required none are anticipated unless her condition should change HPI Initial Comments: [place] [facility] Post-Op/Procedure Note Patient Name: ZAIDA DILLON Date of : 80 Patient Status: Inpatient Attending Provider: Jim Dean Date: 05/25/20 14:07 Initialization Date: 05/25/20 14:07 - General Post-Op/Procedure Note Date of Surgery/Procedure: 05/25/20 Operative Procedure(s): Primary low segment transverse Pre Op Diagnosis: Failure to progress second stage of labor, persistent occiput posterior suspected. With COVID 19+. Post-Op Diagnosis: Same Anesthesia Technique: Epidural Primary Surgeon: Jim Dean Secondary Surgeon: Kendrick Godinez Anesthesia Provider: Roberta Combs Golf Course Keeper: Marita Vilchis (PAYAM) Reason Golf Course Keeper Was Necessary: Assist in surgery, retraction, decrease comorbidity and mortality Role of Golf Course Keeper: Assist in surgery, retraction, decrease comorbidity and mortality Fluid Replacement, Intraop: 1,800 Output, Urine Amount: 80 EBL in mLs: 600 Drain/Tube Comments:: Martinez Complications: None Condition: Good Free Text/Narrative:: Intake & Output 05/24/20 05/25/20 05/25/20 22:59 06:59 14:59 Intake Total 2780 2200 1100 Balance 2780 2200 1100 Patient was transferred to the operating room and surgery operating room #1 placed under epidural anesthesia in the supine position with a wedge of the right hip and right flank. PPE precautions for COVID were taken as patient was COVID-19 positive vaginal abdominal prep performed a azithromycin 500 mg and Ancef 3 g given intravenously prior to surgery Martinez catheter had been placed to gravity drainage. Prepared and draped in a sterile fashion. Timeout performed confirming name date of and procedures primary section. Adequate level of anesthesia was confirmed the was in the operating room and utilizing Trax additional retraction the area of the incision prior to draping the patient in a sterile fashion. Confirmed adequate level anesthesia injecting 20 mL of 0.5% Marcaine in the area of the planned incision Pfannenstiel incision was made and carried sharp section to and through the anterior fascia peritoneal cavity was entered without difficulty. Bladder flap created pushed caudad. A low segment transverse was performed delivering a female liveborn at 1309 hrs. Apgars 8/9 weight 3810 g 8 pounds 6 ounces persistent occiput posterior adding to the difficulty of attempted vaginal delivery. Dr.Oksa dailey and present at delivery cared for the . Cord blood was collected from three-vessel cord and placenta was removed manually, inspection removed additional remnants of membranes. Sponge and needle pack instrument count correct x1 and the uterus was closed in 2 layers running locking suture of 0 Monocryl for the first layer in a horizontal imbricating suture modified Lembert type for the second layer. Both tubes and ovaries appeared normal clots were cleaned from the gutters and cul-de-sac the uterus placed into the abdominal cavity and inspected and no bleeding from the operative site. Sponge needle pack instrument count correct x2 and the abdominal incision was closed with #1 PDS for the anterior fascia the skin was closed subcuticular 3-0 Monocryl Dermabond Preneo applied. Patient was recovered in the operating room to her COVID 19+ complication. No blood transfusions were required none are anticipated unless her condition should change Brief History: [facility] . Post-Op/Procedure Note. Patient Name: ZAIDA DILLON HELENMedical Record Number: [id number]. Date of : 80Patient Status: Inpatient. Attending Provider: Jim Deanount Number: [id number]. Date: 05/25/20 14:07Initialization Date: 05/25/20 14:07. - General Post-Op/Procedure Note. Date of Surgery/Procedure: 05/25/20. Operative Procedure(s): Primary low segment transverse . Pre Op Diagnosis: Failure to progress second stage of labor, persistent occiput posterior suspected. With COVID 19+. Post-Op Diagnosis: Same. Anesthesia Technique: Epidural. Primary Surgeon: Jim Dean. Secondary Surgeon: Kendrick Godinez. Anesthesia Provider: Roberta Combs. Golf Course Keeper: Marita Vilchis (PAYAM). Reason Golf Course Keeper Was Necessary: Assist in surgery, retraction, decrease comorbidity and mortality. Role of Golf Course Keeper: Assist in surgery, retraction, decrease comorbidity and mortality. Fluid Replacement, Intraop: 1,800. Output, Urine Amount: 80. EBL in mLs: 600. Drain/Tube Comments:: Martinez. Complications: None. Condition: Good. Free Text/Narrative:: Intake & Output. 05/24/2009/04/2009. 22:[id number]:[id number]. Intake [id number]. [id number]. Patient was transferred to the operating room and surgery operating room #1 placed under epidural anesthesia in the supine position with a wedge of the right hip and right flank. PPE precautions for COVID were taken as patient was COVID-19 positive vaginal abdominal prep performed a azithromycin 500 mg and Ancef 3 g given intravenously prior to surgery Martinez catheter had been placed to gravity drainage. Prepared and draped in a sterile fashion. Timeout performed confirming name date of and procedures primary section. Adequate level of anesthesia was confirmed the was in the operating room and utilizing Trax additional retraction the area of the incision prior to draping the patient in a sterile fashion. Confirmed adequate level anesthesia injecting 20 mL of 0.5% Marcaine in the area of the planned incision Pfannenstiel incision was made and carried sharp section to and through the anterior fascia peritoneal cavity was entered without difficulty. Bladder flap created pushed caudad. A low segment transverse was performed delivering a female liveborn at 1309 hrs. Apgars 8/9 weight 3810 g 8 pounds 6 ounces persistent occiput posterior adding to the difficulty of attempted vaginal delivery. Dr.Oksa dailey and present at delivery cared for the . Cord blood was collected from three-vessel cord and placenta was removed manually, inspection removed additional remnants of membranes. Sponge and needl e pack instrument count correct x1 and the uterus was closed in 2 layers running locking suture of 0 Monocryl for the first layer in a horizontal imbricating suture modified Lembert type for the second layer. Both tubes and ovaries appeared normal clots were cleaned from the gutters and cul-de-sac the uterus placed into the abdominal cavity and inspected and no bleeding from the operative site. Sponge needle pack instrument count correct x2 and the abdominal incision was closed with #1 PDS for the anterior fascia the skin was closed subcuticular 3-0 Monocryl Dermabond Preneo applied. Patient was recovered in the operating room to her COVID 19+ complication. No blood transfusions were required none are anticipated unless her condition should change Diagnosis: Stroke: No - Discharge Data Discharge Date: 05/27/20 Discharge Disposition: Home, Self-Care 01 Condition: Good - Referral to Home Health Primary Care Physician: Jim Dean MD - Discharge Diagnosis/Problem(s) (1) COVID-19 affecting , antepartum SNOMED Code(s): 485776809 ICD Code: O98.519 - OTHER VIRAL DISEASES COMPLICATING , UNSP TRIMESTER; U07.1 - COVID-19 Status: Acute Current Visit: Yes (2) GBS carrier SNOMED Code(s): 2040569440633 ICD Code: Z22.330 - CARRIER OF GROUP B STREPTOCOCCUS Status: Acute Current Visit: Yes (3) 40 weeks gestation of SNOMED Code(s): 90300623 ICD Code: Z3A.40 - 40 WEEKS GESTATION OF Status: Acute Current Visit: Yes (4) Advanced maternal age, 1st SNOMED Code(s): 09061597 ICD Code: O09.519 - SUPERVISION OF ELDERLY PRIMIGRAVIDA, UNSPECIFIED TRIMESTER Status: Acute Current Visit: Yes Qualifiers: Trimester: third trimester Qualified Code(s): O09.513 - Supervision of elderly primigravida, third trimester - Patient Summary/Data Operative Procedure(s) Performed: Primary low segment transverse Complications: none Consults: none Hospital Course: uneventful SubQ suture cut at skin line bilaterally - Patient Instructions Diet: Usual Diet as Tolerated Driving: Do Not Drive (X2 weeks) Showering/Bathing: May Shower, No Tub Bathing/Swimming (X6 weeks) Wound/Incision Care: Keep Operative Site/Wound Site Clean and Dry Notify Provider of: Fever, Increased Pain, Swelling and Redness, Drainage, Nausea and/or Vomiting - Discharge Plan *PRESCRIPTION DRUG MONITORING PROGRAM REVIEWED*: Yes *COPY OF PRESCRIPTION DRUG MONITORING REPORT IN PATIENT NATALIE: Yes Prescriptions/Med Rec: Acetaminophen/oxyCODONE [Percocet 325-5 MG] 1 tab PO Q6H PRN #15 tablet PRN Reason: Pain (Moderate 4-6) Home Medications: Home Meds Levothyroxine 25 mcg PO ACBREAKFAST 05/24/20 [History] Pnv No.95/Ferrous Fum/Folic AC [ Caplet] 2 each PO DAILY 05/24/20 [History] Acetaminophen [Tylenol] 650 mg PO Q6H PRN tablet 05/27/20 [Rx] Acetaminophen/oxyCODONE [Percocet 325-5 MG] 1 tab PO Q6H PRN #15 tablet 05/27/20 [Rx] Ibuprofen [Motrin] 600 mg PO Q6H PRN tablet 05/27/20 [Rx] valACYclovir [Valtrex] 1,000 mg PO DAILY PRN tablet 05/27/20 [Rx] Patient Handouts: COVID-19 Frequently Asked Questions, and Self- Care, Care After Delivery, Tips for a Good Latch, With Inverted, Flat, or Very Large Nipples, Prevent the Spread of COVID-19 if You Are Sick - [facility] Referrals: Jim Dean MD [Primary Care Provider] - (Appointment to see me 06/08/2020) - Discharge Summary/Plan Comment DC Time >30 min.: No - Patient Data Vitals - Most Recent: Last Vital Signs Temp 97.7 F 05/27/20 03:33 Pulse 60 05/27/20 03:33 Resp 14 05/27/20 03:33 BP 133/84 05/27/20 03:33 Pulse Ox 98 05/27/20 03:33 Weight - Most Recent: 279 lb I&O - Last 24 hours: Intake & Output 09/09/20 09/10/20 09/10/20 22:59 06:59 14:59 Intake Total 0 Balance 0 Lab Results - Last 24 hrs: Laboratory Results - last 24 hr 05/24/20 Range/Units 06:50 COVID-19 PCR Not detected (NOT DETECT) Med Orders - Current: Current Medications Acetaminophen (Tylenol) 650 mg PO Q4H PRN PRN Reason: mild pain or fever Last Admin: 05/26/20 20:24 Dose: 650 mg Documented by: Diphenhydramine HCl (Benadryl) 25 mg IVPUSH Q6H PRN PRN Reason: Itching or Nausea Docusate Sodium (Colace) 100 mg PO Q12H PRN PRN Reason: Constipation Last Admin: 05/26/20 07:59 Dose: 100 mg Documented by: Ephedrine Sulfate (Ephedrine Sulfate) 5 mg IVPUSH SEECOMMENT PRN PRN Reason: Other Ibuprofen (Motrin) 600 mg PO Q6H PRN PRN Reason: mild pain or fever Last Admin: 05/26/20 16:01 Dose: 600 mg Documented by: Levothyroxine Sodium (Levothyroxine) 25 mcg PO ACBREAKFAST [facility] Last Admin: 05/26/20 06:20 Dose: 25 mcg Documented by: Naloxone HCl (Narcan) 0.1 mg IVPUSH SEECOMMENT PRN PRN Reason: Respiratory Depression Ondansetron HCl (Zofran) 4 mg IV Q8H PRN PRN Reason: Nausea/Vomiting Oxycodone/Acetaminophen (Percocet 325-5 Mg) 1 tab PO Q4H PRN PRN Reason: Pain (moderate 4-6) Last Admin: 05/26/20 22:12 Dose: 1 tab Documented by: Oxycodone/Acetaminophen (Percocet 325-5 Mg) 2 tab PO Q4H PRN PRN Reason: Pain (severe 7-10) Simethicone (Simethicone) 80 mg PO QID [facility] Last Admin: 05/26/20 20:13 Dose: 80 mg Documented by: Sodium Chloride (Saline Flush) 10 ml FLUSH ASDIRECTED PRN PRN Reason: Keep Vein Open Valacyclovir HCl (Valtrex) 1,000 mg PO DAILY PRN PRN Reason: Other Discontinued Medications Bupivacaine HCl (Marcaine 0.5%) Confirm Administered Dose 30 ml .ROUTE .STK-MED ONE Stop: 05/25/20 12:33 Last Admin: 05/25/20 13:07 Dose: 20 ml Documented by: Bupivacaine HCl (Sensorcaine-Mpf 0.25%) 10 ml .ROUTE .STK-MED ONE Stop: 05/26/20 00:01 Citric Acid/Sodium Citrate (Bicitra Solution) 30 ml PO ONETIME ONE Stop: 05/25/20 12:23 Last Admin: 05/25/20 12:32 Dose: 30 ml Documented by: Diphenhydramine HCl (Benadryl) 25 mg IVPUSH Q6H PRN PRN Reason: pruritis Diphenhydramine HCl (Benadryl) 25 mg IVPUSH Q6H PRN PRN Reason: pruritis Stop: 05/25/20 23:00 Ephedrine Sulfate (Ephedrine Sulfate) 5 mg IVPUSH ASDIRECTED PRN PRN Reason: Hypotension Fentanyl (Sublimaze) 100 mcg EPIDUR Q3H PRN PRN Reason: Pain Last Admin: 05/24/20 20:20 Dose: 100 mcg Documented by: Fentanyl (Sublimaze) Confirm Administered Dose 100 mcg .ROUTE .STK-MED ONE Stop: 05/25/20 12:41 Fentanyl (Sublimaze) 50 mcg IVPUSH Q5M PRN PRN Reason: Pain Stop: 05/25/20 23:00 Fentanyl/Bupivacaine HCl (Fentanyl/Bupivacaine/Ns 2 Mcg-0.125% 100 Ml) 100 ml EPIDUR ASDIRECTED PRN PRN Reason: Pain Last Admin: 05/25/20 09:51 Dose: 100 ml Documented by: Lactated Ringer's (Ringers, Lactated) 1,000 mls @ 100 mls/hr IV ASDIRECTED [facility] Last Admin: 05/25/20 07:35 Dose: 100 mls/hr Documented by: Ampicillin Sodium 2 gm/ Sodium (Chloride) 100 mls @ 200 mls/hr IV ONETIME ONE Stop: 05/24/20 06:02 Last Admin: 05/24/20 06:15 Dose: 200 mls/hr Documented by: Ampicillin Sodium 1 gm/ Sodium (Chloride) 100 mls @ 200 mls/hr IV Q4H [facility] Last Admin: 05/25/20 22:31 Dose: Not Given Documented by: Oxytocin/Lactated Ringer's (Pitocin In Lr 20 Units/1,000 Ml) 20 unit in 1,000 mls @ 500 mls/hr IV .CONTINUOUS CHATA Last Infusion: 05/25/20 09:40 Dose: 62 mls/hr Documented by: Oxytocin/Lactated Ringer's (Pitocin In Lr 10 Units/1,000 Ml) 10 unit in 1,000 mls @ 12 mls/hr IV TITRATE CHATA; Protocol Last Admin: 05/25/20 10:32 Dose: 24 munits/min, 144 mls/hr Documented by: Azithromycin 500 mg/ Sodium (Chloride) 250 mls @ 250 mls/hr IV ONETIME ONE Stop: 05/25/20 13:29 Last Admin: 05/25/20 12:35 Dose: 250 mls/hr Documented by: Cefazolin Sodium/Dextrose 2 gm (/ Premix) 50 mls @ 100 mls/hr IV ONETIME ONE Stop: 05/25/20 12:51 Last Admin: 05/26/20 08:44 Dose: Not Given Documented by: Cefazolin Sodium/Dextrose 1 gm (/ Premix) 50 mls @ 100 mls/hr IV ONETIME ONE Stop: 05/25/20 12:51 Last Admin: 05/26/20 08:44 Dose: Not Given Documented by: Oxytocin/Lactated Ringer's (Pitocin In Lr 20 Units/1,000 Ml) 20 unit in 1,000 mls @ 500 mls/hr IV TITRATE CHATA Lactated Ringer's (Ringers, Lactated) Confirm Administered Dose 1,000 mls @ as directed .ROUTE .STK-MED ONE Stop: 05/25/20 12:39 Lactated Ringer's (Ringers, Lactated) Confirm Administered Dose 1,000 mls @ as directed .ROUTE .STK-MED ONE Stop: 05/25/20 13:22 Dextrose/Lactated Ringer's (Dextrose 5%-Lactated Ringers) 1,000 mls @ 125 mls/hr IV ASDIRECTED [facility] Stop: 05/25/20 23:53 Last Admin: 05/25/20 21:22 Dose: 125 mls/hr Documented by: Ibuprofen (Motrin) 600 mg PO Q6H PRN PRN Reason: mild pain or fever Ketorolac Tromethamine (Toradol) Confirm Administered Dose 30 mg .ROUTE .STK-MED ONE Stop: 05/25/20 13:14 Ketorolac Tromethamine (Toradol) 30 mg IVPUSH Q6H [facility] Stop: 05/26/20 07:31 Last Admin: 05/26/20 07:59 Dose: 30 mg Documented by: Metoclopramide HCl (Reglan) 10 mg IVPUSH ONETIME ONE Stop: 05/25/20 12:23 Last Admin: 05/25/20 12:33 Dose: 10 mg Documented by: Morphine Sulfate (Duramorph Pf) Confirm Administered Dose 1 mg .ROUTE .STK-MED ONE Stop: 05/25/20 12:42 Nalbuphine HCl (Nubain) 10 mg IVPUSH Q2H PRN PRN Reason: Pain Ondansetron HCl (Zofran) 4 mg IVPUSH Q4H PRN PRN Reason: Nausea/Vomiting Ondansetron HCl (Zofran) Confirm Administered Dose 4 mg .ROUTE .STK-MED ONE Stop: 05/25/20 13:19 Ondansetron HCl (Zofran) 4 mg IVPUSH ONETIME PRN PRN Reason: Nausea/Vomiting Stop: 05/25/20 23:00 Sodium Chloride (Saline Flush) 10 ml FLUSH ASDIRECTED PRN PRN Reason: Keep Vein Open
[2020-05-27] MEDS: Simethicone 80 MG Tab.Chew PO SCH ×2 (09:30→19:30)
[2020-05-27] MEDS: Acetaminophen/oxyCODONE 325-5 MG Tab PO PRN (09:30)
[2020-05-27] MEDS: Levothyroxine 25 MCG Tab PO SCH (12:26)
[2020-05-27 14:08] VITALS: BP 131/95; PULSE 57
--- NOTE | 2020-05-27 14:37 | PCM.SN.2 ---
- Free Text/Narrative Note: Anesthesia Note (Autologous Blood Patch For Spinal Headache Post Epidural Placement for Labor Analgesia): Time Out: 1205 Start: 1205 Stop: 1343 Blood patch procedure discussed with patient and , risks, benefits educated with them. Patient and demonstrate understanding. Chart reviewed, allergies/platelet count noted, consent signed, patient sitting leaning over bedside table for Blood patch placement. Sterile technique noted throughout procedure. L3-L4 space cleansed with betadine swabs times three. Sterile drape placed. Area localized with 1% lidocaine 17 gauge tuouhy needle placed with ANGIE noted at 6cm. Via sterile technique, autologous blood retrieved by RN at the right arm, 20ml's total noted, after multiple attempts per director of programming RN, Floor RN, Lab, Myself, and Rai Gardner CRNA. Total of 20ml's of autologous blood injected through toughy needle, patient c/o mid back pressure at the end of injection. Patient instructed to: Lay flat for one hour. Stay inactive for the next few days. Drink plenty of fluids and caffeinated beverages Procedure tolerated well. Plan for discharge later today. Thank you. Darien Barreto CRNA
== END 2020-05-27 19:20 | disposition home or self-care (01) | DRG 540 ==
LOC: JD.OBCHECK 04:39 → JD.OB 05:48 → OBSVTOIN 05-25 13:09 → JD.OB 05-25 13:59
PROVIDERS: ADMIT Obstetrics & Gynecology; ATTEND Obstetrics & Gynecology
PROC: 10D00Z1 Extraction of Products of Conception, Low, Open Approach (ICD-10-PCS; principal; 2020-05-25)
PROC: 3E0R3BZ Introduction of Anesthetic Agent into Spinal Canal, Percutaneous Approach (ICD-10-PCS; 2020-05-25)
PROC: 00HU33Z Insertion of Infusion Device into Spinal Canal, Percutaneous Approach (ICD-10-PCS; 2020-05-25)
DX: O98.52 Other viral diseases complicating childbirth (principal); U07.1 COVID-19; O99.62 Diseases of the digestive system complicating childbirth; K21.9 Gastro-esophageal reflux disease without esophagitis; O99.02 Anemia complicating childbirth; D64.9 Anemia, unspecified; O99.214 Obesity complicating childbirth; O62.1 Secondary uterine inertia; Z3A.40 40 weeks gestation of pregnancy; Z37.0 Single live birth; Z79.82 Long term (current) use of aspirin
CPT/HCPCS: 01967; 36415; 51702; 59025; 62273; 84112; 85025; 86592; 86850; 86900; 86901; A9270-GY; J0290; J0456; J1885; J2274; J2405; J2590; J2765; J3010; J3490; J7050; J7120; J7121; U0002

== ENCOUNTER 2021-10-14 05:25 | Inpatient (IN) | payer BC ==
[~2021-10-14 05:25] MED LIST: Citric Acid/Sodium Citrate Solution 30 ML Cup PO ONE; Metoclopramide 10 MG/2 ML SDV IVPUSH ONE; Oxytocin/Lactated Ringers 10 UNIT/1,000 ML BAG IV SCH
[2021-10-14] MEDS: Lactated Ringers 1,000 ML IV SCH ×2 (05:51→07:06)
[2021-10-14] MEDS ORDERED: Oxytocin 10 Units/1 ML SDV ONE (06:31)
[2021-10-14] MEDS ORDERED: ceFAZolin 1 GM Vial ONE (06:31)
[2021-10-14] MEDS ORDERED: fentaNYL 100 MCG/2 ML SDV ONE (06:31)
[2021-10-14] MEDS ORDERED: Morphine PF 10 MG/10 ML SDV ONE (06:31)
[2021-10-14] MEDS ORDERED: Bupivacaine 0.75%/D5W 2 ML Amp ONE (06:32)
[2021-10-14] MEDS ORDERED: Bupivacaine 0.5% 30 ML SDV ONE (07:13)
[2021-10-14] MEDS ORDERED: ePHEDrine 50 MG/ML SDV ONE (08:00)
[2021-10-14] MEDS ORDERED: Lactated Ringers 1,000 ML ONE ×3 (08:11→08:28)
[2021-10-14] MEDS ORDERED: fentaNYL 100 MCG/2 ML SDV IVPUSH PRN (08:16)
[2021-10-14] MEDS ORDERED: diphenhydrAMINE 50 MG/ML SDV IVPUSH PRN ×2 (08:16→10:41)
[2021-10-14] MEDS ORDERED: Ondansetron 4 MG/2 ML SDV IVPUSH PRN ×2 (08:16→12:14)
[2021-10-14] MEDS ORDERED: Ondansetron 4 MG/2 ML SDV ONE (08:23)
[2021-10-14] MEDS ORDERED: Ketorolac 30 MG/ML SDV ONE (08:28)
[2021-10-14] MEDS ORDERED: Sodium Chloride 0.9% 10 ML Syringe FLUSH SCH (09:00)
[2021-10-14] MEDS ORDERED: Naloxone 0.4 MG/ML SDV IVPUSH PRN (10:41)
[2021-10-14] MEDS ORDERED: Dextrose 5%-Lactated Ringers 1,000 ML IV SCH (10:41)
[2021-10-14] MEDS ORDERED: ePHEDrine 50 MG/ML SDV IVPUSH PRN (10:41)
[2021-10-14] MEDS ORDERED: Acetaminophen/oxyCODONE 325-5 MG Tab PO PRN ×2 (10:41)
[2021-10-14] MEDS: Ketorolac 30 MG/ML SDV IVPUSH SCH ×2 (14:38→20:21)
[2021-10-14] MEDS ORDERED: Sodium Chloride 0.9% 500 ML IV ONE (20:46)
[2021-10-15] MEDS: Ketorolac 30 MG/ML SDV IVPUSH SCH (02:33)
[2021-10-15] MEDS ORDERED: Ferrous Sulfate 324 MG Tab.EC PO SCH (17:00)
[2021-10-15] MEDS ORDERED: Docusate Sodium 100 MG Cap PO PRN (20:51)
[2021-10-15] MEDS: Ibuprofen 600 MG Tab PO PRN (21:02)
[2021-10-16] MEDS: Ibuprofen 600 MG Tab PO PRN ×2 (02:40→09:15)
[2021-10-16 16:00] VITALS: BP 116/76; PULSE 70
== END 2021-10-16 10:50 | disposition home or self-care (01) | DRG 540 ==
LOC: JD.OB 05:25
PROVIDERS: ADMIT Family Medicine; ATTEND Family Medicine
PROC: 10D00Z1 Extraction of Products of Conception, Low, Open Approach (ICD-10-PCS; principal; 2021-10-14)
DX: O34.211 Maternal care for low transverse scar from previous cesarean delivery (principal); Z37.0 Single live birth; O98.52 Other viral diseases complicating childbirth; U07.1 COVID-19; O99.62 Diseases of the digestive system complicating childbirth; K21.9 Gastro-esophageal reflux disease without esophagitis; O99.214 Obesity complicating childbirth; O99.284 Endocrine, nutritional and metabolic diseases complicating childbirth; E03.9 Hypothyroidism, unspecified; O99.52 Diseases of the respiratory system complicating childbirth; J45.909 Unspecified asthma, uncomplicated; Z3A.39 39 weeks gestation of pregnancy
CPT/HCPCS: 01961; 36415; 59025; 85014; 85018; 85025; 86592; 86850; 86900; 86901; A9270-GY; J0690; J1885; J2274; J2405; J2590; J2765; J3010; J3490; J7030; J7120; J7121